=== PATIENT | female | born 1970 ===

== ENCOUNTER → 2018-01-23 | Outpatient (CLI) | payer OTHER | END | disposition home or self-care (01) | LOC: LAB 19:13 | DX: M10.9 Gout, unspecified (principal); M25.462 Effusion, left knee; E55.9 Vitamin D deficiency, unspecified; M85.9 Disorder of bone density and structure, unspecified; E88.9 Metabolic disorder, unspecified; D64.9 Anemia, unspecified; M06.4 Inflammatory polyarthropathy; E03.9 Hypothyroidism, unspecified; M19.90 Unspecified osteoarthritis, unspecified site; E78.00 Pure hypercholesterolemia, unspecified ==